=== PATIENT | female | born 1950 | race Two or more races ===

== ENCOUNTER 2022-03-09 08:06 | Outpatient (RCR) | payer MEDICARE, SELFPAY ==
--- NOTE | 2022-03-09 16:46 | HMH.SLDYSPHA ---
Speech & Language Evaluation Speech/Language Dysphagia Evaluation Start: 03/09/22 16:20 Freq: ONCE Status: Active Protocol: Document 03/09/22 16:20 TANYA (Rec: 03/09/22 16:45 TANYA [id number]) Dysphagia Assess/Goals/Plan Assessment Date of Evaluation: 03/09/22 Evaluation Type Initial Certification Assessment/Problems Pt was seen at [facility] for a dysphagia evaluation per MD order. Does Patient Qualify for Service Yes Qualify/Failure Comment Based on clinical observation and patient/family interview, pt would benefit from further evaluation using a MBSS to full assess the swallow 2' hx of aspiration. She would also benefit from skilled speech therapy services 1x/week to review compensatory strategies and observe diet tolerance with recommendations from today's visit until a MBSS can be completed. Recommendations PHYSICIAN CERTIFICATION: The specified therapy services are required, authorized, and reviewed every 30 days. Pt will be seen # times/week 1 for # weeks 4 Diet Recommendations Mechanical Soft Liquid Type Recommendations [place] Consistency SL Swallow Guidelines Alt bite w/sip thru meal,High aspiration risk Crush Meds Crush all meds Dysphagia Swallow Precautions/Strategies Sitting Upright (90 deg), Double Swallow,Small Bites and Sips,Alternate Liquids/Solids Plan Anticipate reaching STG in # weeks 2 Anticipate reaching LTG in # weeks 4 Pt/Guardian verbally ack understanding Yes of dx/prognosis/goals G -code Required No STG-Other Comment/Non-Specific Pt will complete further testing using a MBSS to fully assess her swallow. Pt will complete compensatory strategies from previous MBSS at other facility w/ PLASTIC TILE LAYER with 80% accuracy across 10 trials over three consecutive sessions. Pt will demonstrate diet tolerance with 100% accuracy based on clinical observation and family report. Elevator Service Mechanic Goals Diet
== END 2022-03-09 08:10 | disposition home or self-care (01) ==
LOC: ST 08:06
PROVIDERS: PCP Physician Assistant; Visit Provider Physician Assistant
DX: R13.10 Dysphagia, unspecified (principal)
CPT/HCPCS: 92610

== ENCOUNTER → 2022-03-09 09:25 | Outpatient (CLI) | payer MEDICARE, SELFPAY ==
--- NOTE | 2022-03-09 09:32 | XR_ITS ---
FINAL REPORT TECHNIQUE: Bone densitometry calculations of the lumbar spine and left hip were obtained. CLINICAL HISTORY: . POST MENOAPUSAL FINDINGS: Using L1-4, the bone mineral density of the spine is 0.531 g/cm2, corresponding to T-score of -4.7. Using the left hip, the bone mineral density of the femoral neck is 0.469 g/cm2, corresponding to a T-score of -3.9. Using the right hip, the bone mineral density of the femoral neck is 0.452 g/cm2, corresponding to a T-score of -3.6. NOTE: T-score: Standard deviation compared with peak bone mass of young adult mean. *Following the recommendations of the International Society of Bone Densitometry, classification of hip BMD is based on the lower of two T-scores; total hip or femoral neck. IMPRESSION: Osteoporosis: Lowest T-score is at or below -2.5. This patient's T-score meets the World Health Organization criteria for osteoporosis. FRAX data was not reported because some of the T-scores are at or below-2.5. Reviewed, Interpreted and Dictated by John Enciso III, MD Transcribed by Christie Dubose Authenticated and . [facility]
== END ==
PROVIDERS: PCP Physician Assistant; Visit Provider Physician Assistant
DX: Z78.0 Asymptomatic menopausal state (principal)
CPT/HCPCS: 77080

== ENCOUNTER → 2022-03-15 10:34 | Outpatient (CLI) | payer MEDICARE, SELFPAY ==
--- NOTE | 2022-03-15 10:34 | FL_ITS ---
FINAL REPORT CLINICAL HISTORY: ft 2:31 dysphagia FINDINGS: MODIFIED BARIUM SWALLOW History: Dysphagia. FINDINGS: Fluoroscopy was provided for the speech pathologist to evaluate the swallowing mechanism. The patient was given several different consistencies of barium while the swallow was visualized fluoroscopically. The report of the speech pathologist should be consulted prior to making dietary decisions. FLUOROSCOPY TIME: 2 minutes 31 seconds. 14 cg were obtained. IMPRESSION: Modified barium swallow under fluoroscopic guidance. Please see the report of the speech pathologist for more detail. Films reviewed , interpreted and dictated by Dr. Watkins. Transcribed by Bethel Espinal PA-C. Reviewed, Interpreted and Dictated by Josr Watkins MD Transcribed by KERVIN Martell Authenticated and [facility]
--- NOTE | 2022-03-15 15:22 | HMH.SLMBS2 ---
Speech & Language Evaluation Speech/Language Mod Barium Swallow Start: 03/15/22 14:37 Freq: once Status: Complete Protocol: Document 03/15/22 14:38 AMANDOKODI (Rec: 03/15/22 15:21 CWEINORMAEIN [id number]) General Information General Current Food Consistency Regular,[place] Liquids Dentition Upper Only,Poor Dentition Oxygen Status Room Air Facial Symmetry Symmetrical Ability to Follow Directions Excellent Communication Ability No Impairment MBS Recommendations Diet Dietary Recommendations Regular,Thin Liquids Treatment/Strategies Strategy/Precaution Recommend Sitting Upright (90 deg),Small Bites and Sips,Alternate Liquids/Solids Mod Barium Swallow Impressions Summary and Impressions Oral Phase Impression Moderate Impairment Oral Phase Summary Moderate oral dysphagia 2' pt refusing to chew any solids. She swallowed small piece of mechanical soft whole and solid trials were discontinued 2' concern for airway obstruction. Premature spillage to the pyriform sinuses with all liquids and to the valleculae with puree 2 ' lack of back of tongue control. Pharyngeal Phase Impression Mild Impairment Pharyngeal Phase Summary Mild pharyngeal dysphagia. No penetration or aspiration was noted on the study. Decreased hyolaryngeal excursion and reduced base of tongue retraction were both noted on the study. Mild diffuse pharyngeal residue noted with all consistencies, which is reduced with a secondary swallow. Speech/Language MBS Assessment/Goals/Plan Assessment Date of Evaluation: 03/15/22 Evaluation Type Initial Certification Assessment/Problems Hx of dysphagia Does Patient Qualify for Service Yes Qualify/Failure Comment Given that pt has been improving with dysphagia exercises, GUNCOTTON PACKER recommends continuing these to strengthen swallow mechanism. Recommendations PHYSICIAN CERTIFICATION: The specified therapy services are required, authorized, and reviewed every 30 days. Pt will be seen # times/week 1 for # weeks
== END ==
PROVIDERS: PCP Physician Assistant; Visit Provider Physician Assistant
DX: R13.10 Dysphagia, unspecified (principal)
CPT/HCPCS: 70371; 92611

== ENCOUNTER 2022-05-23 10:00 | Outpatient (RCR) | payer MEDICARE, SELFPAY ==
--- NOTE | 2022-05-08 15:51 | HMH.SLDYSPHA ---
Speech & Language Evaluation Speech/Language Dysphagia Evaluation Start: 05/08/22 15:16 Freq: ONCE Status: Active Protocol: Document 05/08/22 15:16 ABBIE (Rec: 05/08/22 15:50 CWKODI [id number]) Dysphagia Assess/Goals/Plan Assessment Date of Evaluation: 05/08/22 Evaluation Type Initial Certification Assessment/Problems History of dysphagia. Does Patient Qualify for Service Yes Qualify/Failure Comment Based on the results of the dysphagia evaluation, pt would benefit from skilled speech therapy services to improve swallow function in order to have a regular diet. Recommendations PHYSICIAN CERTIFICATION: The specified therapy services are required, authorized, and reviewed every 30 days. Pt will be seen # times/week 1 for # weeks 12 Diet Recommendations Mechanical Soft Liquid Type Recommendations Normal/Thin SL Swallow Guidelines Alt bite w/sip thru meal, Standard Aspiration Prec., Crush meds as allowed*,Eat at slow rate Crush Meds Crush all meds Dysphagia Swallow Precautions/Strategies Sitting Upright (90 deg), Double Swallow,Small Bites and Sips,Alternate Liquids/Solids Place Food on Either side of Mouth Plan Anticipate reaching STG in # weeks 8 Anticipate reaching LTG in # weeks 12 Pt/Guardian verbally ack understanding Yes of dx/prognosis/goals Pt/Guardian verbally ack understanding Yes of/consent to tx prog G -code Required No STG-Bolus Form/Tongue Movement Push up with back of tongue against 10 depressor in # trials Push blade of tongue upward against 10 tongue depressor in # trials Push R/L lateral tongue border against 10 tongue depressor in # trials Protrude tongue tip into R/L cheek 10 against resistance in #trials STG-Asp Aft/Pyrif.-Laryn.Elevation Use Taina maneuver for specified 10 consitencies w/wo cues in #trials Produce i/in continuous fashion, incl. 10 fasetto in # trials STG-Asp Aft/Pyrif.-Hyolaryngeal Comp Perform head lift maneuver for # secs 10 STG-Asp Aft/[place]-Tongue Base Use effortful swallow w/wo cues in # 10 trials Demonstrate tongue base retraction in # 10 trials Prison Goals Pt will be able to eat foods w/more Yes normal consistency Education Instructions provided Assessment results, POC, and goals were discussed with pt and family who demonstrated
== END 2022-05-23 10:05 | disposition home or self-care (01) ==
LOC: ST 10:00
PROVIDERS: PCP Physician Assistant; Visit Provider Physician Assistant
DX: R13.10 Dysphagia, unspecified (principal)
CPT/HCPCS: 92526; 92610

== ENCOUNTER → 2022-08-23 12:28 | Outpatient (CLI) | payer MEDICARE, SELFPAY ==
[2022-08-23 12:56] LABS: Basophils % 0.3 % (0.1-2.0); Eosinophils # 0.1 K/mm3 (0.0-0.4); Hematocrit 42.8 % (37.0-47.0); Hemoglobin 13.6 g/dL (12.2-16.2); Lymphocytes # 1.1 K/mm3 (0.7-4.5); Lymphocytes % 13.2 % (10-50); Mean Corpuscular HGB Conc 31.8 g/dL (31.8-35.4); Mean Corpuscular Hemoglobin 30.9 pg (27.0-31.2); Mean Platelet Volume 9.2 fl (7.4-10.4); Monocytes # 0.5 K/mm3 (0.1-1.0); Monocytes % 6.7 % (1.7-9.3); Neutrophils # 6.3 K/mm3 (1.8-7.8); Neutrophils % 78.8 % (37.0-80.0); Platelet Count 347 K/mm3 (142-424); Red Blood Count 4.41 M/mm3 (4.20-5.40); Red Cell Distribution Width 13.3 % (11.5-17.5)
[2022-08-23 13:09] LABS: Alanine Aminotransferase 21 U/L (12-78); Albumin Level 4.7 g/dl (3.5-5.0); Albumin/Globulin Ratio 1.7 (1.1-1.8); Alkaline Phosphatase 107 U/L (38-126); Anion Gap 16.8 mEq/L (5-15); Aspartate Amino Transferase 31 U/L (14-36); Bilirubin,Total 0.6 mg/dl (0.2-1.3); Blood Urea Nitrogen 18 mg/dl (7-17); Calcium 9.2 mg/dl (8.4-10.2); Carbon Dioxide 26 mmol/L (22.0-30.0); Chloride 101 mmol/L (98-107); Chol/HDL Ratio 2.2 (1-3.5); Cholesterol 189 mg/dl (140-200); Estimated Glomerular Filt Rate 99 ml/min (>60); GFR (African American) 120 ML/MIN (>60); Globulin 2.8 g/dL (1.3-3.2); Glucose 80 mg/dl (74-100); HDL Cholesterol 85 mg/dl (40-60); Potassium 4.8 mmoL/L (3.5-5.1); Sodium 139 mmol/L (136-145); Total Protein,Serum 7.5 g/dl (6.3-8.2); Triglycerides 116 mg/dl (30-150); VLDL Cholesterol 23 mg/dL (0-40)
[2022-08-23 13:20] LABS: Direct LDL Cholesterol 79.64 mg/dL (100-129)
[2022-08-23 13:23] LABS: 25-OH Vitamin D, Total 58.1 ng/mL (30-100)
[2022-08-23 13:24] LABS: Intact Parathyroid Hormone 34.9 pg/mL (7.5-53.5)
[2022-08-23 13:42] LABS: Thyroid Stimulating Hormone 4.97 uIU/mL (0.465-4.68)
[2022-08-23 14:02] LABS: Vitamin B12 614 pg/mL (239-931)
== END ==
PROVIDERS: PCP Physician Assistant; Visit Provider Physician Assistant
DX: L65.9 Nonscarring hair loss, unspecified (principal); M89.8X9 Other specified disorders of bone, unspecified site; K44.9 Diaphragmatic hernia without obstruction or gangrene; E78.5 Hyperlipidemia, unspecified; M81.0 Age-related osteoporosis without current pathological fracture
CPT/HCPCS: 80053; 80061; 82306; 82607; 83970; 84443; 85025

== ENCOUNTER → 2022-12-24 11:04 | Outpatient (CLI) | payer MEDICARE, SELFPAY ==
--- NOTE | 2022-12-24 11:16 | FL_ITS ---
FINAL REPORT CLINICAL HISTORY: dysphagia 3.10 fluoro time DAP 185.23 FINDINGS: MODIFIED BARIUM SWALLOW HISTORY: Dysphagia. FINDINGS: Fluoroscopy was provided for the speech pathologist to evaluate the swallowing mechanism. The patient was given several different consistencies of barium while the swallow was visualized fluoroscopically. The report of the speech pathologist should be consulted prior to making dietary decisions. IMPRESSION: Modified barium swallow under fluoroscopic guidance. Please see speech pathologist's report for further details and dietary recommendations. Fluoroscopy time was 3 minutes, 10 seconds Radiation exposure in Total DAP: 185.23 uGym2 A total of 21 cine runs were saved. Reviewed, Interpreted and Dictated by John Enciso III, MD Transcribed by Yolande Encarnacion PA-C Authenticated and . [facility]
--- NOTE | 2022-12-24 13:03 | HMH.SLMBS2 ---
Speech & Language Evaluation Speech/Language Mod Barium Swallow Start: 12/24/22 12:51 Freq: once Status: Complete Protocol: Document 12/24/22 12:51 TANYA (Rec: 12/24/22 13:02 CLARISSACINDYRAMON [id number]) General Information General Current Food Consistancy Regular,Thin Liquids Dentition Upper & Lower Dentures Oxygen Status Room Air Patient Orientation Person,Place,Time,Situation Ability to Follow Directions Good Communication Ability No Impairment MBS Recommendations Diet Dietary Recommendations Regular,Thin Liquids Treatment/Strategies Treatment Recommendation Oral Motor Exercises,Base of Tongue Exercises,Pharyngeal Resistive Exer,Compens. Strategy Educat. Strategy/Precaution Recommend Sitting Upright (90 deg),Chin Tuck,Double Swallow,[place] Maneuver Referrals/Other Recommended Referrals GI Consult Other Recommendations Pt reported globus sensation throughout study, as well as reports of throwing up/ vomitting/reflux during and after meals. Mod Barium Swallow Impressions Summary and Impressions Oral Phase Impression Mild Impairment Oral Phase Summary Mild impairment of the oral prepatory and oral transit phases of the swallow. Premature spillage to the pyriform sinuses with all liquids and to the valleculae with puree 2' lack of back of tongue control. Pharyngeal Phase Impression Moderate Impairment Pharyngeal Phase Summary Moderate impairment of the pharyngeal phase of the swallow. During consecutive subsequent swallows of a thin liquid, pt was observed to have trace amounts of aspiration 2' laryngeal vestibule closure 2' decreased hyolaryngeal excursion leading to reduced epiglottic coverage and reduced base of tongue retraction both noted on the study. Mild diffuse pharyngeal residue noted with all consistencies, which is reduced with a secondary swall
== END ==
PROVIDERS: PCP Physician Assistant; Visit Provider Physician Assistant
DX: R13.10 Dysphagia, unspecified (principal)
CPT/HCPCS: 70371; 92611

== ENCOUNTER 2023-03-28 10:07 | Outpatient (CLI) | payer MEDICARE, SELFPAY ==
--- NOTE | 2023-03-28 10:15 | XR_ITS ---
FINAL REPORT CLINICAL HISTORY: bilateral knee pain COMPARISON: None FINDINGS: Three views of the right knee reveal no evidence of fracture or dislocation. The bony alignment is normal. The joint spaces are preserved. There is no evidence of joint effusion. No localized soft tissue abnormality is identified. Meniscal calcification is noted. IMPRESSION: No acute abnormality identified. Reviewed, Interpreted and Dictated by John Enciso III, MD Transcribed by Kayla Betts Authenticated and [facility]
--- NOTE | 2023-03-28 10:15 | XR_ITS ---
FINAL REPORT CLINICAL HISTORY: bilateral knee pain s/p fall COMPARISON: None FINDINGS: Three views show no evidence of an acute, displaced fracture or dislocation of the visualized bony architecture. The joint spaces appear normal. Mild meniscal calcification is identified. IMPRESSION: Unremarkable exam. Reviewed, Interpreted and Dictated by Josr Watkins MD Transcribed by Kayla Betts Authenticated and [facility]
== END 2023-03-28 23:59 ==
LOC: RAD 10:08
PROVIDERS: PCP Physician Assistant; Visit Provider Physician Assistant
DX: M25.562 Pain in left knee (principal)
CPT/HCPCS: 73562

== ENCOUNTER 2023-03-28 12:32 | Outpatient (CLI) | payer MEDICARE, SELFPAY ==
[2023-03-28 12:53] LABS: Basophils % 0.3 % (0.1-2.0); Eosinophils % 0.2 % (0.1-12.0); Hematocrit 39.7 % (37.0-47.0); Hemoglobin 13.7 g/dL (12.2-16.2); Lymphocytes # 0.9 K/mm3 (0.7-4.5); Lymphocytes % 8.8 % (10-50); Mean Corpuscular HGB Conc 34.5 g/dL (31.8-35.4); Mean Corpuscular Hemoglobin 32.3 pg (27.0-31.2); Mean Corpuscular Volume 93.7 fl (81-99); Mean Platelet Volume 8.5 fl (7.4-10.4); Monocytes # 0.6 K/mm3 (0.1-1.0); Monocytes % 6.4 % (1.7-9.3); Neutrophils # 8.4 K/mm3 (1.8-7.8); Neutrophils % 84.4 % (37.0-80.0); Platelet Count 351 K/mm3 (142-424); Red Blood Count 4.24 M/mm3 (4.20-5.40); Red Cell Distribution Width 14.3 % (11.5-17.5)
[2023-03-28 12:56] LABS: Chloride 105 mmol/L (98-107); Potassium 3.9 mmoL/L (3.5-5.1); Sodium 137 mmol/L (136-145)
[2023-03-28 12:58] LABS: Alanine Aminotransferase 19 U/L (12-78); Alkaline Phosphatase 112 U/L (38-126); Aspartate Amino Transferase 26 U/L (14-36); Bilirubin,Total 0.6 mg/dl (0.2-1.3); Blood Urea Nitrogen 15 mg/dl (7-17); Estimated Glomerular Filt Rate 99 ml/min (>60); GFR (African American) 120 ML/MIN (>60)
[2023-03-28 12:59] LABS: Albumin Level 4.2 g/dl (3.5-5.0); Albumin/Globulin Ratio 1.7 (1.1-1.8); Anion Gap 8.9 mEq/L (5-15); Calcium 8.5 mg/dl (8.4-10.2); Carbon Dioxide 27 mmol/L (22.0-30.0); Chol/HDL Ratio 3.3 (1-3.5); Cholesterol 194 mg/dl (140-200); Globulin 2.5 g/dL (1.3-3.2); Glucose 99 mg/dl (74-100); HDL Cholesterol 58 mg/dl (40-60); Total Protein,Serum 6.7 g/dl (6.3-8.2); Triglycerides 104 mg/dl (30-150); VLDL Cholesterol 21 mg/dL (0-40)
[2023-03-28 13:10] LABS: Direct LDL Cholesterol 110.88 mg/dL (100-129)
[2023-03-28 13:15] LABS: 25-OH Vitamin D, Total 52.3 ng/mL (30-100)
[2023-03-28 13:30] LABS: Thyroid Stimulating Hormone 2.51 uIU/mL (0.465-4.68)
[2023-03-28 13:49] LABS: Vitamin B12 719 pg/mL (239-931)
== END 2023-03-28 23:59 ==
LOC: LAB.DROPOF 12:33
PROVIDERS: PCP Physician Assistant; Visit Provider Physician Assistant
DX: E78.5 Hyperlipidemia, unspecified (principal); R53.83 Other fatigue; E53.8 Deficiency of other specified B group vitamins; E55.9 Vitamin D deficiency, unspecified; M25.562 Pain in left knee; M25.561 Pain in right knee
CPT/HCPCS: 73562; 80053; 80061; 82306; 82607; 84443; 85025

== ENCOUNTER 2023-09-17 16:22 | Outpatient (CLI) | payer MEDICARE, SELFPAY ==
[2023-09-17 17:19] LABS: Basophils % 0.5 % (0.1-2.0); Eosinophils # 0.1 K/mm3 (0.0-0.4); Eosinophils % 0.8 % (0.1-12.0); Hematocrit 40.4 % (37.0-47.0); Mean Corpuscular HGB Conc 32.2 g/dL (31.8-35.4); Mean Corpuscular Hemoglobin 31.8 pg (27.0-31.2); Mean Corpuscular Volume 98.7 fl (81-99); Mean Platelet Volume 9.8 fl (7.4-10.4); Monocytes # 0.4 K/mm3 (0.1-1.0); Monocytes % 6.6 % (1.7-9.3); Neutrophils # 4.4 K/mm3 (1.8-7.8); Neutrophils % 75.1 % (37.0-80.0); Platelet Count 305 K/mm3 (142-424); Red Cell Distribution Width 13.7 % (11.5-17.5); White Blood Count 5.9 K/mm3 (4.8-10.8)
[2023-09-17 17:50] LABS: Alanine Aminotransferase 19 U/L (12-78); Albumin Level 4.2 g/dl (3.5-5.0); Albumin/Globulin Ratio 1.7 (1.1-1.8); Alkaline Phosphatase 110 U/L (38-126); Anion Gap 10.1 mEq/L (5-15); Aspartate Amino Transferase 27 U/L (14-36); Bilirubin,Total 0.6 mg/dl (0.2-1.3); Blood Urea Nitrogen 17 mg/dl (7-17); Carbon Dioxide 28 mmol/L (22.0-30.0); Chloride 105 mmol/L (98-107); Chol/HDL Ratio 2.9 (1-3.5); Cholesterol 219 mg/dl (140-200); Estimated Glomerular Filt Rate 82 ml/min (>60); GFR (African American) 100 ML/MIN (>60); Globulin 2.5 g/dL (1.3-3.2); Glucose 62 mg/dl (74-100); HDL Cholesterol 75 mg/dl (40-60); Potassium 4.1 mmoL/L (3.5-5.1); Sodium 139 mmol/L (136-145); Total Protein,Serum 6.7 g/dl (6.3-8.2); Triglycerides 107 mg/dl (30-150); VLDL Cholesterol 21 mg/dL (0-40)
[2023-09-17 18:01] LABS: Direct LDL Cholesterol 105.46 mg/dL (100-129)
[2023-09-17 18:05] LABS: 25-OH Vitamin D, Total 77.7 ng/mL (30-100)
[2023-09-17 18:24] LABS: Thyroid Stimulating Hormone 3.18 uIU/mL (0.465-4.68)
== END 2023-09-17 23:59 | disposition home or self-care (01) ==
LOC: LAB.DROPOF 16:23
PROVIDERS: PCP Physician Assistant; Visit Provider Physician Assistant
DX: R53.83 Other fatigue (principal); E78.5 Hyperlipidemia, unspecified; E55.9 Vitamin D deficiency, unspecified
CPT/HCPCS: 80050; 80053; 80061; 82306; 84443; 85025

== ENCOUNTER 2023-10-10 08:40 | Outpatient (CLI) | payer MEDICARE, SELFPAY ==
--- NOTE | 2023-10-10 08:41 | CT_ITS ---
FINAL REPORT TECHNIQUE: Pre-and postcontrast axial CT images of the abdomen and pelvis were obtained. Coronal reformatted images were also obtained and reviewed. This study was performed with techniques to keep radiation doses as low as reasonably achievable (ALARA). Individualized dose reduction techniques using automated exposure control or adjustment of mA and/or kV according to the patient's size were employed. CLINICAL HISTORY: abdominal pain FINDINGS: There is scarring at the left base. The liver parenchyma is homogeneous. There is a small hemangioma in the right lobe of the liver measuring 1.2 cm. There is a 2nd hemangioma in the medial right lobe of the liver measuring 1.1 cm. The gallbladder is absent. There is moderate intra and extrahepatic biliary ductal dilatation. The common duct measures up to 11 mm. There is no evidence of choledocholithiasis. Small hiatal hernia is present. The spleen is unremarkable. The adrenals are normal. The pancreas is unremarkable. The kidneys enhance appropriately. Precontrast images demonstrate no nephrolithiasis. There is moderate lumbar scoliosis convex to the left measuring 35 degrees. The urinary bladder is incompletely distended. There are postoperative changes within the small bowel in the mid pelvis. Moderate amount of stool is seen throughout the colon. IMPRESSION: Moderate intra and extrahepatic biliary ductal dilatation, probably related to prior cholecystectomy. Moderate lumbar scoliosis. Reviewed, Interpreted and Dictated by Casey Isidro MD Transcribed by Christie Dubose Authenticated and [facility]
[2023-10-10] MEDS: SODIUM CHLORIDE 0.9% 10ML SYR (RAD ONLY) 10 ML IV (09:09)
[2023-10-10] MEDS: IOPAMIDOL-370 (76%);100ML BOTTLE 75 ML IV (09:09)
== END 2023-10-10 23:59 | disposition home or self-care (01) ==
LOC: RAD 08:41
PROVIDERS: PCP Physician Assistant; Visit Provider Physician Assistant
DX: Z87.19 Personal history of other diseases of the digestive system (principal); R10.9 Unspecified abdominal pain
CPT/HCPCS: 74178; Q9967

== ENCOUNTER 2023-12-10 11:47 | Outpatient (CLI) | payer MEDICARE, SELFPAY ==
[2023-12-10 15:31] VITALS: BMI 21.8
== END 2023-12-10 23:59 | disposition home or self-care (01) ==
LOC: DIETICIAN 11:48
PROVIDERS: PCP Nurse Practitioner Family; Visit Provider Nurse Practitioner Family
DX: R63.4 Abnormal weight loss (principal)
CPT/HCPCS: 97802